=== PATIENT | female | born 1970 | race African-American/Black ===

== ENCOUNTER 2019-10-09 13:52 | Emergency (ER) | payer OTHER ==
[2019-10-09] MEDS ORDERED: CYCLOBENZAPRINE HCL 10 MG TABLET PO ONE (14:50)
[2019-10-09] MEDS ORDERED: ACETAMINOPHEN 325 MG TABLET PO ONE (14:50)
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
[2019-10-09 15:57] VITALS: BP 112/79
== END 2019-10-09 15:51 | disposition home or self-care (01) ==
LOC: ER 13:52
DX: S16.1XXA Strain of muscle, fascia and tendon at neck level, initial encounter (principal); S29.012A Strain of muscle and tendon of back wall of thorax, initial encounter; M54.2 Cervicalgia; M54.6 Pain in thoracic spine; V87.7XXA Person injured in collision between other specified motor vehicles (traffic), initial encounter
CPT/HCPCS: 72070; 72125; 99284